=== PATIENT | female | born 1940 | race Caucasian/White ===

== ENCOUNTER 2018-06-21 05:48 | Inpatient (IN) | payer MEDICARE, OTHER, SELFPAY ==
[2018-06-06 10:41] VITALS: BMI 31.6
[2018-06-21] VITALS (19 sets, daily range): BP systolic 80–165; BP diastolic 47–90; PULSE 58–100; RESP 12–19; TEMP 36.1–36.7; O2SAT 94–98; BMI 31.6; BMI 32.3
--- NOTE | 2018-06-21 | DI.RAD.S_ITS ---
PROCEDURE: XR SHOULDER LT MIN 2V INDICATIONS: Status post total shoulder arthroplasty TECHNIQUE: 2 views of the shoulder were acquired. COMPARISON: [facility], CT, CT SHOULDER LEFT WITHOUT CONTRAST, 02/22/2018, 12:14. FINDINGS: Bones: Expected postoperative changes related to a total left shoulder arthroplasty are present. Metallic prosthetic component appears to be properly seated within the proximal humerus. No acute fractures are evident. There is no dislocation. Moderate to severe degenerative changes of the acromioclavicular joint are present. Prominent degenerative changes of the spine are not adequately characterized. Soft tissues: No suspicious soft tissue calcifications. Expected postoperative changes within the overlying soft tissues of the left shoulder are present. A surgical drainage catheter appears to be present. No unexpected radiopaque foreign bodies are evident. Aortic atherosclerosis is present. IMPRESSION: Expected post surgical changes related to left shoulder arthroplasty. Dictated by: Javy Wagner M.D. on 06/21/2018 at 10:30 Approved by: Javy Wagner M.D. on 06/21/2018 at 10:32
[2018-06-21] MEDS: LACTATED RINGERS 1,000 ML 42 ML IV ×2 (07:00→11:16)
[2018-06-21] MEDS: VANCOMYCIN 1,000 MG/200 ML FROZ.PIGGY 200 MG IV ×2 (07:10→18:48)
--- NOTE | 2018-06-21 08:04 | SUR.PREOP ---
Block start time [0745] . Monitoring initiated and maintained throughout procedure. Oxygen and medications given per anesthesiologist instructions. Patient remained stable throughout procedure, no adverse reactions noted. Block end time [0800].
--- NOTE | 2018-06-21 08:05 | PM.PREOP ---
Pre-operative Note Interval Note History & Physical reviewed/Exam performed by Physician: Yes Changes to H&P: No
[2018-06-21] MEDS: GENTAMICIN 200 MG in SODIUM CHLORIDE 0.9% 100 ML 105 ML IV (08:15)
--- NOTE | 2018-06-21 08:46 | SUR.OPER ---
Beach chair with Attila/Sergo shoulder positioner. Lower body on padded OR bed. Head in foam padded head cradle, secured with straps. Non-operative arm secured <90 degrees abduction. Pillow under knees. Safety belt at thigh. Cloth tape over blanket over lower legs.
--- NOTE | 2018-06-21 08:57 | PM.PROC.1 ---
Procedures Date/Time Date of procedure: 06/21/18 Time of procedure: 07:45 General Procedure description: Ultrasound guided interscalene brachial plexus nerve block for post op pain control after left total shoulder arthroplasty by Dr. Lenz. Risk and benefits of procedure discussed with patient. ASA monitoring applied to patient. O2 given via nasal cannula. 2 mg Versed and 100 mcg fentanyl given for procedural sedation. Skin site was prepped with chlorhexidine and allowed to fully dry. Sterile gloves, mask, hat and probe cover were used to maintain sterility. 2% lidocaine and 30ga needle was used to make a small skin wheal at needle insertion site. Under ultrasound guidance, a 21ga 50mm Pajunk needle was directed into the interscalene groove (middle/anterior scalenes) near the brachial plexus. Patient reported no parasthesias. After negative aspiration, 20 mL 0.5% ropivicaine and 10mg dexamethasone were injected around brachial plexus. Patient tolerated procedure well.
--- NOTE | 2018-06-21 09:00 | P.PCN_ITS ---
Procedures Date/Time Date of procedure: 06/21/18 Time of procedure: 07:45 General Procedure description: Ultrasound guided interscalene brachial plexus nerve block for post op pain control after left total shoulder arthroplasty by Dr. Lenz. Risk and benefits of procedure discussed with patient. ASA monitoring applied to patient. O2 given via nasal cannula. 2 mg Versed and 100 mcg fentanyl given for procedural sedation. Skin site was prepped with chlorhexidine and allowed to fully dry. Sterile gloves, mask, hat and probe cover were used to maintain sterility. 2% lidocaine and 30ga needle was used to make a small skin wheal at needle insertion site. Under ultrasound guidance, a 21ga 50mm Pajunk needle was directed into the interscalene groove (middle/ anterior scalenes) near the brachial plexus. Patient reported no parasthesias. After negative aspiration, 20 mL 0.5% ropivicaine and 10mg dexamethasone were injected around brachial plexus. Patient tolerated procedure well.
[2018-06-21] MEDS: LIDOCAINE 1% W/EPI INJ 4 ML INJ (09:04)
--- NOTE | 2018-06-21 10:46 | P.OP_ITS ---
Operative Date/Time/Diagnoses Date of procedure: 06/21/18 Time of procedure: 08:00 Pre-op diagnosis: Left shoulder arthritis Post-op diagnosis: same Procedure & Clinicians Procedure: Left total shoulder arthroplasty Same procedure as scheduled: Yes Indications: Left end-stage shoulder arthritis Surgeon: Ángel Lenz Marketing Technology Coordinator: Karen Vazquez Anesthesia Type: General and Peripheral nerve block Operative Notes Findings: End-stage arthritis to the glenohumeral joint with significant osteophyte formation. No sign of any rotator cuff tears. Closure Type: primary Specimen(s): none sent Implants & Drains: Arthrex total shoulder arthroplasty Medium glenoid 8mm stem 44/17 head Applied: drain(s) and implant(s) Estimated Blood Loss (mL): 50 Blood products transfused: none Procedure in detail: On date of service, Patient was met in the holding area. The operative site was signed and witnessed by the OR staff. The surgeries once again discussed with the patient and any remaining questions they had were answered fully. Patient was taken back to the operating theater and placed on the operating table in a supine position. Great care was taken to ensure that all bony prominences were properly padded. Patient was then placed into the beach chair position. The head and neck were properly positioned and secured. A timeout was performed verifying patient's name, procedure, and the operative site. The upper extremity was then prepped and draped in the normal sterile fashion. Previously, the bony anatomy and incision were marked out as well as injected with Marcaine with epinephrine. A deltopectoral approach was performed. 10 blade was used to incise the skin and fascial tissue. A deep knife was used to continue sharp dissection until the cephalic vein was visualized. The cephalic vein was dissected free allowing us to expose the deltopectoral interval. This interval was then developed. A Jonas elevator was used to free up the deltoid of any scarring both superficially as well as deeply. The vein and the deltoid were taken laterally while the pectoralis was taken medially. This gave us good visualization of the strap muscles. The clavipectoral fascia was removed and the strap muscles were then retracted medially with the pectoralis. This gave us stabilization of the subscapularis. The circumflex vessels were ligated and the subscapularis was sharply excised off the lesser tuberosity and then tagged. Once the subscapularis was released we're able to dislocate the shoulder. Patient had end-stage arthritic changes to the humeral head as well as the glenoid with large osteophytes anterior inferiorly as well as posteriorly. A Ronger was then used to remove the osteophytes. Next, cutting guide was placed and a saw was used to remove the humeral head. Once the head was removed it was templated. A starting awl was then used to find the canal and then the humerus was reamed and broached. Trial stem was placed and a variety of heads were trialed. A protector placed for the osteotomy was then placed and and we turned our attention back to the subscapularis as well as the glenoid. The subscapularis was freed up and a 360? fashion. The degenerative anterior and inferior capsular tissue was removed. This was followed by removing the degenerative labral tissue from around the glenoid as well as the biceps insertion. This gave us good visualization of the glenoid. Glenoid trials were used until we found the appropriate fit and curvature. Next the center hole was drilled followed by reaming of the glenoid. The wound was copiously irrigated after reaming. Next the pegs were drilled and a trial glenoid was impacted into place. Once we were satisfied with the preparation of the glenoid , the final component was cemented into place. This was followed by impaction. We Return to our attention back to the humerus. The protector plate was removed and heads were trialed once again and so we found the appropriate fit. The trials were removed and bone tunnels were made into the humeral neck. #2 FiberWire were passed through the bone tunnels for eventual subscapularis repair. The final stem and head were impacted into place and the shoulder was reduced. It was taken through range of motion and was felt to be stable in both posterior translation as well as external and internal rotation with abduction. The subscapularis was repaired back to the lesser tuberosity through the bone tunnels. This was then reinforced with soft tissue repair. Part of the rotator interval was then closed. A drain was placed and the rest of the wound was closed in a layered fashion. The shoulder was then cleaned dried and dressed and the patient was taken to the PACU in stable condition. Patient will follow our postoperative protocol for total shoulder arthroplasty. Complications: none Condition: stable Disposition: Acute Care Plan for aftercare: Patient will follow our postoperative protocol for total shoulder arthroplasty
--- NOTE | 2018-06-21 12:16 | SUR.PHASEI ---
Pt's bp low on admit to pacu, IV fluids infusing high rate. Pt asymptomatic. BP dropped to 80's systolic while sitting straight up for xray, and pt still asymptomatic. Dr levine made aware, 500mls bolus in progress after first iv infused per dr levine's instruction.
--- NOTE | 2018-06-21 12:45 | SUR.PHASEI ---
Late entry: Bolus completed .Pt's condition reported to Dr. Sarmiento, no new orders recieved, pt ok per MD to go upstairs. Pt transpoted up to room 222 and left in stable condition.
[2018-06-21] MEDS: LACTATED RINGERS 1,000 ML 125 ML IV ×2 (13:51→21:02)
--- NOTE | 2018-06-21 15:30 | PT.IIE ---
Current Diagnoses Obstructive sleep apnea (adult) (pediatric) (06/21/18) Primary osteoarthritis, left shoulder (06/21/18) Surgery Performed Operation Date: 06/21/18 07:45 Actual Procedures p Total Shoulder Arthroplasty(Left) - Ángel Lenz MD Surgical History (Last Updated 06/06/18 @ 11:28 by Corinne Dailey, RN) History of total hip arthroplasty (Acute) History of total knee arthroplasty (Acute) Medical History (Last Updated 06/06/18 @ 11:27 by Corinne Dailey, RN) Arthralgia (Acute) Arthritis (Acute) Arthritis of left shoulder region (Acute) Back pain (Acute) Borderline diabetic (Acute) Constipation (Acute) Decreased sensation of foot (Acute) Dysthymia (Acute) Fatigue (Acute) History of breast cancer (Acute) Hyperlipidemia (Acute) Hypertension (Acute) Lumbar spinal stenosis (Acute) Mass of upper lobe of right lung (Acute ~02/26/18) Huerta's neuroma of right foot (Acute) Murmur (Acute) Myalgia (Acute) MARIAM (obstructive sleep apnea) (Acute) Osteopenia of forearm (Acute) Right foot pain (Acute) Rosacea (Acute) Physical Therapy Inpatient Evaluation/Re-Eval M1 PT/OT-IP Prior Functional Status Start: 06/21/18 17:03 Freq: NEEDED Status: Active Protocol: Document 06/21/18 15:30 AB (Rec: 06/21/18 17:18 AB [id number]) Medical Review Prior Functional Status Medical History Reviewed Yes Communication Able to make needs known Mobility and Gait pt stated thta she is independent with all mobilities and ambulation without AD indoors; uses SPC outdoors but also uses 4WW outdoors if she has to walk long distances Social History Household Members none Living Arrangements Apartment/Condo Number of Floors (Floors) One Floor Number of Stairs To Enter/Railing? no steps to enter Home Environment High Toilet Walk in Shower Home Equipment Four Wheel Walker Straight Cane Grab Bars Near Toilet Grab Bars In Shower Additional Social History Comment has a recliner and stated that the doctor told her to sleep on the recliner pt's daughter will stay with pt for the next few days and then pt's son and another son will take over to assist pt. M2 PT-IP Current Condition Start: 06/21/18 17:03 Freq: NEEDED Status: Active Protocol: Document 06/21/18 15:30 AB (Rec: 06/21/18 17:18 AB [id number]) Physical Therapy Current Condition Current Condition Evaluation Date 06/21/18 Treatment Diagnosis s/p L TSA; difficulty in walking Onset Date 06/21/18 Precautions Shoulder Precautions Sling PROM Internal Rotation to Body No External Rotation No Abduction Forward Flexion to 90 degrees Pendulums Weight Bearing Status Weight Bearing Status Non-Weight Bearing Allowed Weight Bearing Amount (enter % LUE NWB or #) (%) M3 PT-IP Subjective Start: 06/21/18 17:03 Freq: NEEDED Status: Active Protocol: Document 06/21/18 15:30 AB (Rec: 06/21/18 17:18 AB [id number]) Subjective Physical Therapy Visit Type Type Initial Evaluation Visit Start Time 15:30 Visit Stop Time 16:18 Total Visit Minutes 48 Number of METALLURGICAL TESTER Visits 0 Physical Therapy Visit Comments Patient Comments pt agreeable to get up; daughter present during PT session Therapy Pain Assessment Pain Present Pain Present Denied Pain M4 PT-IP Mobility and Gait Start: 06/21/18 17:03 Freq: NEEDED Status: Active Protocol: Document 06/21/18 15:30 AB (Rec: 06/21/18 17:18 AB [id number]) PT-Bed Mobility Assessment Supine to Sit Supine to Sit Standby Assistance Sit to Supine Sit to Supine Standby Assistance Scooting Scooting to Edge of Bed Standby Assistance PT-Transfer Assessment Sit to and From Stand Sit to and from Stand Minimal Assistance 1 Person Assistance Use of Upper Extremities Equipment Transfer Assistive Device Gait Belt Straight Cane Orthotic/Prosthetic Devices or Brace: Yes Comments Mobility Comments BP supine: 136/65. pt has LUE sling on. pt completed bed mobility supine to sit SBA. pt sat on EOB SBA. educated pt and pt's daughter on how to manage and position sling. initiated ROM on L elbow and hand but pt can only squeeze hand and unable to control elbow and other hand movement at this time. pt stated that she is still numb on LUE. pt completed sit to stand from EOB min A and cues. initiated ambulation but after taking ~ 2-3 steps stated that she does not think she can ambulate and c/o lightheadedness. instructed pt to take side steps towards HOB and pt completed min A. pt completed sit to supine SBA . positioned pt on the bed. BP checked 120/81. ice pack provided. call light and table placed within reach. left pt with daughter in room. set up caregiver trainin -930 AM tomorrow Gait Assessment Gait Gait Assistance Required: Minimum Assistance Distance (Feet) 3 Able to Maintain Weight Bearing Status Yes During Gait Assistive Devices Assistive Device Gait Belt Straight Cane Orthotic/Prosthetic Devices or Brace: Yes Gait Deviations General Gait Pattern Antalgic Decreased Stride Length Decreased Feet Clearance Factors Limiting Gait Function Factors Limiting Gait Function Decreased Activity Tolerance Decreased Sensation Decreased Strength Limited Range of Motion Poor Balance Poor Safety Awareness Comments Gait Comments able to take side steps towards HOB min A and cues. PT-Balance Assessment Sitting Balance and Reactions Static Sitting Balance Ability Good Dynamic Sitting Balance Ability Good Standing Balance and Reactions Static Standing Balance Ability Fair Dynamic Standing Balance Ability Fair Device Used SPC M5 PT-IP Objective Assessments Start: 06/21/18 17:03 Freq: NEEDED Status: Active Protocol: Document 06/21/18 15:30 AB (Rec: 06/21/18 17:18 AB [id number]) Orientation Orientation/Cognition Level of Alertness Alert Orientation Name Age Birthday Month Date Year Day of Week Place Situation Safety Awareness Decreased Safety Awareness Gross Range of Motion Upper Extremity ROM Assessment Left Impaired Lower Extremity ROM Assessment Within Functional Limits Strength Lower Extremity Strength Assessment Within Functional Limits Sensation Assessment Sensation Light Touch Impaired Proprioception (Position) Impaired Sensation Description Numbness Comments Sensation Comments pt stated that LUE is still numb from the nerve block; has decrease motor control on LUE M6 PT-IP Treatment Start: 06/21/18 17:03 Freq: NEEDED Status: Active Protocol: Document 06/21/18 15:30 AB (Rec: 06/21/18 17:18 AB [id number]) Physical Therapy Treatment Education Education Provided Precautions Weight Bearing Status Safety Brace Education Donning [place] Patient Caregiver Other Treatments Other Treatment Performed caregiver training initiated for sling management. M7 PT-IP Assessment and Plan Start: 06/21/18 17:03 Freq: NEEDED Status: Active Protocol: Document 06/21/18 15:30 AB (Rec: 06/21/18 17:18 AB [id number]) PT Summary Assessment and Plan Potential Rehabilitation Potential Fair Status of Condition at Evaluation Evolving Summary Impairments Pain ROM Strength Balance Coordination Sensation Tone Cognition Bed Mobility Transfers Gait Activity Tolerance Assessment Summary pt unable to tolerate much activity today with c/o lightheadedness during standing. pt just had surgery this morning and will likely progress during hospital stay. caregiver training set up with pt's daughter tomorrow at 9-930 am. if pt's daughter is able to assist pt safely, pt may go home when medically stable. will continue to assess. Goals Bed Mobility Goal Independent Transfer Goal Standby Assistance Cane Gait Goal Standby Assistance Cane Gait Distance 150 Days to Meet Goals 3 Frequency of Treatment Frequency Of Treatment Twice a Day Treatment Plan Physical Therapy Treatment Plan Bed Mobility Training Transfer Training Gait Training Therapeutic Exercise Balance Retraining Post Op Education Discharge Planning Hot or Cold Pack Neuromuscular Re-ed Coordination Retraining Manual Therapy Other Recommendations and Next Treatment caregiver training 9-930 am ; ambulation, sling management, pendulum if appropriate Recommendations To Nursing Amount of Assist Needed 1 Person Assist Discharge Recommendations PT Discharge Recommendations Home with Assistance
[2018-06-21] MEDS: ACETAMINOPHEN 325 MG TABLET 975 MG PO ×2 (15:44→21:02)
[2018-06-21] MEDS: MAG HYDROX/ALUM/SIMETH 30 ML UDC PO (18:48)
[2018-06-21] MEDS: OXYCODONE IR 5 MG TABLET PO ×3 (18:48→23:59)
[2018-06-21] MEDS: CYCLOBENZAPRINE 5 MG TABLET PO (21:03)
[2018-06-21] MEDS: DOCUSATE 100 MG CAPSULE PO (21:03)
[2018-06-21] MEDS: MAGNESIUM HYDROXIDE 30 ML UDC PO (21:05)
[2018-06-22] VITALS (7 sets, daily range): BP systolic 111–146; BP diastolic 55–71; PULSE 53–63; RESP 16–18; TEMP 36.7–37; O2SAT 96–99
[2018-06-22] MEDS: OXYCODONE IR 5 MG TABLET PO ×3 (02:59→09:51)
[2018-06-22 06:04] LABS: Hematocrit 31.1 % (36-46); Hemoglobin 10.5 g/dL (12.0-16.0); Mean Corpuscular HGB Conc 33.9 % (30-36); Mean Corpuscular Volume 88.3 fL (80-100); Platelet Count 165 X10^3/uL (150-400); Red Blood Cell Count 3.52 X10^6/uL (4.0-5.2); Red Cell Distribution Width 14.8 % (11.6-14.8); White Blood Cell Count 9.7 X10^3/uL (4.5-11.0)
[2018-06-22] MEDS: DOCUSATE 100 MG CAPSULE PO ×2 (08:34→20:36)
[2018-06-22] MEDS: ACETAMINOPHEN 325 MG TABLET 975 MG PO ×2 (08:35→18:47)
[2018-06-22] MEDS: IRBESARTAN 150 MG TABLET 300 MG PO (08:38)
[2018-06-22] MEDS: ANASTROZOLE 1 MG TABLET PO (08:38)
[2018-06-22] MEDS: VITAMIN B COMPLEX 1 CAPSULE 1 CAP PO (08:38)
[2018-06-22] MEDS: SERTRALINE 25 MG TABLET PO (08:38)
--- NOTE | 2018-06-22 09:37 | PT.IPTN ---
Current Diagnoses Obstructive sleep apnea (adult) (pediatric) (06/21/18) Primary osteoarthritis, left shoulder (06/21/18) Surgery Performed Operation Date: 06/21/18 07:45 Actual Procedures p Total Shoulder Arthroplasty(Left) - Ángel Lenz MD Physical Therapy Treatment Note M2 PT-IP Current Condition Start: 06/21/18 17:03 Freq: NEEDED Status: Active Protocol: Document 06/21/18 15:30 AB (Rec: 06/21/18 17:18 AB [id number]) Physical Therapy Current Condition Current Condition Evaluation Date 06/21/18 Treatment Diagnosis s/p L TSA; difficulty in walking Onset Date 06/21/18 Precautions Shoulder Precautions Sling PROM Internal Rotation to Body No External Rotation No Abduction Forward Flexion to 90 degrees Pendulums Weight Bearing Status Weight Bearing Status Non-Weight Bearing Allowed Weight Bearing Amount (enter % LUE NWB or #) (%) M3 PT-IP Subjective Start: 06/21/18 17:03 Freq: NEEDED Status: Active Protocol: Document 06/22/18 09:05 HELENA (Rec: 06/22/18 09:37 [id number]) Subjective Physical Therapy Visit Type Type Treatment Note Visit Start Time 09:05 Visit Stop Time 09:20 Total Visit Minutes 15 Physical Therapy Visit Comments Patient Comments pt agreeable to get up; daughter present during PT session M4 PT-IP Mobility and Gait Start: 06/21/18 17:03 Freq: NEEDED Status: Active Protocol: Document 06/22/18 09:05 HELENA (Rec: 06/22/18 09:37 LJ [id number]) PT-Bed Mobility Assessment Supine to Sit Supine to Sit Standby Assistance Sit to Supine Sit to Supine Standby Assistance Scooting Scooting to Edge of Bed Standby Assistance PT-Transfer Assessment Sit to and From Stand Sit to and from Stand Standby Assistance Use of Upper Extremities Equipment Transfer Assistive Device None Orthotic/Prosthetic Devices or Brace: Yes Comments Mobility Comments Pt with LUE sling on. States she has been up x2 already with assist from daughter. Educated and demonstrated pendulum at bed side. Pt got out of bed and while holding on to bedrails, attempted the exercise. Mod cues for relaxing the shoulder to let it hang. Attempted for several minutes then replaced sling. Pt returned to bed w/min assist Gait Assessment Gait Gait Assistance Required: Minimum Assistance Distance (Feet) 3 Able to Maintain Weight Bearing Status Yes During Gait Assistive Devices Orthotic/Prosthetic Devices or Brace: Yes Factors Limiting Gait Function Factors Limiting Gait Function Decreased Activity Tolerance Decreased Sensation Decreased Strength Limited Range of Motion Poor Balance Poor Safety Awareness Comments Gait Comments treatment focused on UE at this time PT-Balance Assessment Sitting Balance and Reactions Static Sitting Balance Ability Good Dynamic Sitting Balance Ability Good Standing Balance and Reactions Static Standing Balance Ability Fair Dynamic Standing Balance Ability Fair Device Used SPC M5 PT-IP Objective Assessments Start: 06/21/18 17:03 Freq: NEEDED Status: Active Protocol: Document 06/21/18 15:30 AB (Rec: 06/21/18 17:18 AB [id number]) Orientation Orientation/Cognition Level of Alertness Alert Orientation Name Age Birthday Month Date Year Day of Week Place Situation Safety Awareness Decreased Safety Awareness Gross Range of Motion Upper Extremity ROM Assessment Left Impaired Lower Extremity ROM Assessment Within Functional Limits Strength Lower Extremity Strength Assessment Within Functional Limits Sensation Assessment Sensation Light Touch Impaired Proprioception (Position) Impaired Sensation Description Numbness Comments Sensation Comments pt stated that LUE is still numb from the nerve block; has decrease motor control on LUE M6 PT-IP Treatment Start: 06/21/18 17:03 Freq: NEEDED Status: Active Protocol: Document 06/22/18 09:05 HELENA (Rec: 06/22/18 09:37 [id number]) Physical Therapy Treatment Education Education Provided Precautions Weight Bearing Status Safety Brace Education Donning [place] Patient Caregiver Other Treatments Other Treatment Performed caregiver training for sling management. M7 PT-IP Assessment and Plan Start: 06/21/18 17:03 Freq: NEEDED Status: Active Protocol: Document 06/22/18 09:05 HELENA (Rec: 06/22/18 09:37 [id number]) PT Summary Assessment and Plan Potential Rehabilitation Potential Fair Status of Condition at Evaluation Evolving Summary Impairments Pain ROM Strength Balance Coordination Sensation Tone Cognition Bed Mobility Transfers Gait Activity Tolerance Assessment Summary Pt demonstrates understanding of pendulum exercise and need to relax the shoulder w/no muscle activation. Daughter present during session observing and attending to pt needs for UE support and ice pack. Will ambulate this afternoon w/pt Goals Bed Mobility Goal Independent Transfer Goal Standby Assistance Cane Gait Goal Standby Assistance Cane Gait Distance 150 Days to Meet Goals 3 Frequency of Treatment Frequency Of Treatment Twice a Day Treatment Plan Physical Therapy Treatment Plan Bed Mobility Training Transfer Training Gait Training Therapeutic Exercise Balance Retraining Post Op Education Discharge Planning Hot or Cold Pack Neuromuscular Re-ed Coordination Retraining Manual Therapy Other Recommendations and Next Treatment caregiver training 9-930 am ; ambulation, sling management, pendulum if appropriate Recommendations To Nursing Amount of Assist Needed Standby Assistance Discharge Recommendations PT Discharge Recommendations Home with Assistance
--- NOTE | 2018-06-22 09:54 | PM.PNPO.1 ---
Subjective Date Patient Seen: 06/22/18 Time Patient Seen: 09:54 Interval history: Hospital day 2, postop day 1 following left total shoulder arthroplasty by Dr. Lenz. Patient has remained stable postoperatively. Using oxycodone for pain. She did work with physical therapy yesterday. She states she does not have outpatient PT scheduled. Patient is concerned about discharge to home because of limited caregiver. She has a family member that will stay with her for few days but then she will be by herself. She was asking about SNF or home health. Exam Vital Signs (past 8 hours): - 06/22/18 04:55 Temperature 98.2 F Pulse Rate 63 Respiratory Rate 16 Blood Pressure 118/68 Pulse Oximetry 97 Oxygen Delivery Method Room Air Oxygen Flow Rate 1 Narrative Exam Narrative: Alert, oriented no acute distress sitting in chair. Left arm. Arm in sling. Aquacel dressing to left shoulder is dry without drainage or inflammation. Motion Picture Projectionist Apprentice strong and equal. Pulses and sensation symmetrical. Objective Labs Result Diagrams: 06/22/18 05:21 Labs: Laboratory Results - last 24 hr 06/22/18 05:21 WBC 9.7 RBC 3.52 L Hgb 10.5 L Hct 31.1 L MCV 88.3 MCH 30.0 MCHC 33.9 RDW 14.8 Plt Count 165 Assessment & Plan Post-op Postoperative Procedures Operation Date: 06/21/18 07:45 Actual Procedures Side Surgeon p Total Shoulder Arthroplasty Left Ángel Lenz MD Will have patient work with PT and OT today to evaluate her function. senior media planner will talk with patient regarding discharge options and possible home health versus SNF. Anticipate discharge to home tomorrow if she is stable and cleared by PT/OT. Quality VTE Deep Vein Thrombosis/Pulmonary Embolism Present on Admission: No
--- NOTE | 2018-06-22 09:57 | P.PN_ITS ---
Subjective Date Patient Seen: 06/22/18 Time Patient Seen: 09:54 Interval history: Hospital day 2, postop day 1 following left total shoulder arthroplasty by Dr. Lenz. Patient has remained stable postoperatively. Using oxycodone for pain. She did work with physical therapy yesterday. She states she does not have outpatient PT scheduled. Patient is concerned about discharge to home because of limited caregiver. She has a family member that will stay with her for few days but then she will be by herself. She was asking about SNF or home health. Exam Vital Signs (past 8 hours): - 06/22/18 04:55 Temperature 98.2 F Pulse Rate 63 Respiratory Rate 16 Blood Pressure 118/68 Pulse Oximetry 97 Oxygen Delivery Method Room Air Oxygen Flow Rate 1 Narrative Exam Narrative: Alert, oriented no acute distress sitting in chair. Left arm. Arm in sling. Aquacel dressing to left shoulder is dry without drainage or inflammation. Steward/Stewardess Club Car strong and equal. Pulses and sensation symmetrical. Objective Labs Result Diagrams: 06/22/18 05:21 Labs: Laboratory Results - last 24 hr 06/22/18 05:21 WBC 9.7 RBC 3.52 L Hgb 10.5 L Hct 31.1 L MCV 88.3 MCH 30.0 MCHC 33.9 RDW 14.8 Plt Count 165 Assessment & Plan Post-op Postoperative Procedures Operation Date: 06/21/18 07:45 Actual Procedures Side Surgeon p Total Shoulder Arthroplasty Left Ángel Lenz MD Will have patient work with PT and OT today to evaluate her function. retail planner will talk with patient regarding discharge options and possible home health versus SNF. Anticipate discharge to home tomorrow if she is stable and cleared by PT/OT. Quality VTE Deep Vein Thrombosis/Pulmonary Embolism Present on Admission: No
[2018-06-22] MEDS: OXYCODONE IR 10 MG TABLET PO ×4 (13:14→22:18)
--- NOTE | 2018-06-22 15:45 | CM.DANOTE ---
Discharge Planning/Care Management CM Discharge Assessment Start: 06/22/18 14:30 Freq: Status: Active Protocol: Document 06/22/18 14:30 (Rec: 06/22/18 15:45 [id number]) Discharge Planning Assessment Assigned Supervisor Histology ISIAH Rondon Advance Directives? Yes Advance Directives on File No History Provided By Patient Family Member Medical Record Prior Living Arrangements Apartment/Condo Comment Resides in [facility] in [place]. Household Members none Type of transporation used prior to Drives own vehicle admit Independent with ADL's Yes Is patient alert and oriented? Yes Caregiver for Another No Community Services used prior to Physical Therapy admission: Patient/Family Preference Group Home Facility Home with Home Health Barriers to Discharge No Discharge Plan Group Home Facility Community Services Physical Therapy Occupational Therapy Referrals Initiated Group Home Home Health If patient plan is home with home health No : Has signed face to face form been completed? If patient plan is SNF: Has PASSR been No completed? Inpatient Status as of 06/21/18 Comment Patient admitted following a left total shoulder. PCP is Elissa Lui in [place] . Primary payer is Medicare. Met with patient and daughter: patient reported being independent at baseline and residing [facility]. Patient's preference is to discharge to a SNF due to underlying knee and back pain, in addition to sholder rehab. Patient's daughter does not feel patient needs a SNF as she and her siblings made arrangements to assist patient for a 1 1/2 weeks and can extend if needed . Patient doesnt want her children to have to change their schedule to accommodate her and is pretty certain she will need a short term SNF stay and then could go home with HH and support of friends and evangelical. Patient reviewed Medicare Choice List and decided she would like SNF [facility]- [facility]. Also should she be safe to discharge home with HH she would prefer [facility] as her used them in the past. Medicare Choice List Provided Yes SNF/HH Preference SNF [facility]. [facility] 1. [facility] Comment CM/Kali faxed referral to [facility]. Whiteboard Updated in Patient Room with Yes name and ext. # of Supervisor Histology Review Status In Process Please Provide Date Initial DC 06/22/18 Assessment Was Performed Next Review Type Continued Stay Review Pre-Anesthesia Assessment Start: 06/06/18 10:41 Freq: Status: Complete Protocol: Document 06/06/18 10:41 RUSTAM (Rec: 06/06/18 10:58 RUSTAM [id number]) Pre-Anesthesia Assessment Patient Also Known As Ventura (AKA) Patient Information Reviewed Via Chart Review Phone Assessment Assessment Completed With Patient Consent for Planned Operative Procedure( No s) Verified H&P Completed Within 30 Days No Primary Care Provider Elissa Lui Seen Specialist in Last 12 Months Yes Specialist Seen Oncologist Orthopedist Primary Language Telugu Pastry Cook Helper Required No Height 168.91 cm Weight 90.265 kg Body Mass Index (BMI) 31.6 Hearing Ability Normal Visual Impairment Partially Limited Visual Assist Glasses Dentition Type Partial- Lower Full- Upper Barriers to Learning Visual Other Aids No Hx Anesthesia Reactions Yes: Difficult intubation 10 years ago, mult surg since w/o problem Hx Family Anesthesia Reaction No Hx Malignant Hyperthermia No Hx Blood Transfusions No Anesthesia Review Requested No Film And Video Graphics Designer No alcohol intake current alcohol intake frequency holidays/special occasions only Smoking Status Former smoker Tobacco type cigarettes Has it been 2 weeks or less since No patient quit smoking how long ago did patient quit smoking 1999 Substance Use Type opiates painkillers Pain Present Pain Reported Comment Left shoulder Musculoskeletal Symptoms Abnormal Gait Back Pain Difficulty Walking Joint Pain Joint Stiffness Joint Swelling Limited Range of Motion Muscle Weakness Numbness Radiating Pain into Limb History of Falling (Recent or History of Yes ) Patient is completely paralyzed or No completely immobile Ambulatory Aid Crutches/cane/walker Prosthesis or Orthotic Device Cane Front Wheel Walker Gait/Transferring Weak Mental Status Oriented to own ability Comment Weakness on right Is patient on oxygen? No Does patient have BRENNAN/SOB No Hx Sleep Apnea Yes: Mild, couldn't tolerate test period R/T shoulder pain Comment Spot on lung unknown not thought to be CA; Re scan end of 07/17 Currently Taking a Beta Lindsey No: BP fluctuates ' drastically' Can You Climb a Flight of Stairs Without No SOB Hx Chest Pain No Hx SOB No Hx Syncope or Dizziness Yes: 2 years ago, cardiac work -up negative Anti-Coagulant Therapy No Has a Coagulating Operator No Cardiac Testing Yes: negative workup Hx Pacemaker/ICD No Pacemaker Rep Required? No Cardiac Clearance Received Not Applicable Diet Type At Home Regular dysphagia No Bladder Pattern Incontinent Nocturia Urinary Catheter Present No Hx Urinary Self Catheterization No Comment Wears a pad, lacks sensation of urge to void Patient No Lactating No Hx Drug Resistant Organism No Presence of External or Internal Medical No: Robin TKA, COLBY Devices Have you traveled outside the [facility] States in the last 30 days? Marital Status Lives With none Prior Living Arrangements Apartment/Condo Number of Floors (Floors) One Floor Support System Gavi/God Family Friend(s) Patient Discharge Plan Description Group Home Facility/Rehab Comment Hope to go to rehab, lacks good home care Feels Safe in Current Environment Yes Been Physically Hurt or Threatened By a No Person in Current Environment Do you have thoughts of harming yourself None or others? Are you currently considering suicide? No Do you have a plan to hurt yourself or No Plan others? Do You Have Any Spiritual Beliefs That No May Affect Your HC Choices? Do You Have Any Cultural Practices That No May Affect Your HC Choices? Spiritual Referral In-House Travel Pt Comment Mormonism Who Can We Speak to About Patient's Care Family & Friends Identifying Code for Release of Patient Declined Information Health Care Proxy/Next of Kin Eva Alex daughter or Kevin Vaca Son Emergency Contact Name Eva Alex daughter or Kevin Vaca Son Advance Directives? Yes: REGISTRATION WILL REQUEST Advance Directives on File No Requested Patient Bring Advanced Yes Directives DOS Power of Bakery Team Member Yes Power of Bakery Team Member Name Eva Alex PAC Instructions Assistance for 24 hours post- op Do not shave/clip surgical site Durable medical equipment Medications to take/avoid Nasal antibiotic No ETOH/petroleum product on skin DOS NPO Ortho class Post-op transportation Pre-op antibiotic Pre-surgical wash Sensory aids Sturdy shoes/comfortable clothes Do not bring valuables and remove jewelry Comment Check-in 06
--- NOTE | 2018-06-22 15:54 | PT.IPTN ---
Current Diagnoses Obstructive sleep apnea (adult) (pediatric) (06/21/18) Primary osteoarthritis, left shoulder (06/21/18) Surgery Performed Operation Date: 06/21/18 07:45 Actual Procedures p Total Shoulder Arthroplasty(Left) - Ángel Lenz MD Physical Therapy Treatment Note M2 PT-IP Current Condition Start: 06/21/18 17:03 Freq: NEEDED Status: Active Protocol: Document 06/21/18 15:30 AB (Rec: 06/21/18 17:18 AB [id number]) Physical Therapy Current Condition Current Condition Evaluation Date 06/21/18 Treatment Diagnosis s/p L TSA; difficulty in walking Onset Date 06/21/18 Precautions Shoulder Precautions Sling PROM Internal Rotation to Body No External Rotation No Abduction Forward Flexion to 90 degrees Pendulums Weight Bearing Status Weight Bearing Status Non-Weight Bearing Allowed Weight Bearing Amount (enter % LUE NWB or #) (%) M3 PT-IP Subjective Start: 06/21/18 17:03 Freq: NEEDED Status: Active Protocol: Document 06/22/18 14:40 GGD (Rec: 06/22/18 15:54 GGD [id number]) Subjective Physical Therapy Visit Type Type Treatment Note Visit Start Time 14:20 Visit Stop Time 14:45 Total Visit Minutes 25 Number of SOUND CUTTER Visits 2 Physical Therapy Visit Comments Patient Comments Pt willing to work with theray . Therapy Pain Assessment Pain When Pain Assessed At Rest Pain Present Pain Present Pain Reported Location Left Shoulder Intensity 2 Scale Used Numeric (1 - 10) M4 PT-IP Mobility and Gait Start: 06/21/18 17:03 Freq: NEEDED Status: Active Protocol: Document 06/22/18 14:40 GGD (Rec: 06/22/18 15:54 GGD [id number]) PT-Bed Mobility Assessment Supine to Sit Supine to Sit Standby Assistance Head of Bed Elevated Sit to Supine Sit to Supine Standby Assistance Scooting Scooting to Edge of Bed Standby Assistance PT-Transfer Assessment Sit to and From Stand Sit to and from Stand Standby Assistance Use of Upper Extremities Equipment Transfer Assistive Device Gait Belt Straight Cane Transfers Transfer Destination Bed Gait Assessment Gait Gait Assistance Required: Contact Guard Assist Distance (Feet) 140 Assistive Devices Assistive Device Gait Belt Straight Cane Orthotic/Prosthetic Devices or Brace: Yes Gait Deviations General Gait Pattern Decreased Stride Length Decreased Feet Clearance Factors Limiting Gait Function Factors Limiting Gait Function Decreased Activity Tolerance Decreased Sensation Decreased Strength Limited Range of Motion Poor Balance Poor Safety Awareness M5 PT-IP Objective Assessments Start: 06/21/18 17:03 Freq: NEEDED Status: Active Protocol: Document 06/21/18 15:30 AB (Rec: 06/21/18 17:18 AB [id number]) Orientation Orientation/Cognition Level of Alertness Alert Orientation Name Age Birthday Month Date Year Day of Week Place Situation Safety Awareness Decreased Safety Awareness Gross Range of Motion Upper Extremity ROM Assessment Left Impaired Lower Extremity ROM Assessment Within Functional Limits Strength Lower Extremity Strength Assessment Within Functional Limits Sensation Assessment Sensation Light Touch Impaired Proprioception (Position) Impaired Sensation Description Numbness Comments Sensation Comments pt stated that LUE is still numb from the nerve block; has decrease motor control on LUE M6 PT-IP Treatment Start: 06/21/18 17:03 Freq: NEEDED Status: Active Protocol: Document 06/22/18 14:40 GGD (Rec: 06/22/18 15:54 GGD [id number]) Physical Therapy Treatment Education Education Provided Precautions M7 PT-IP Assessment and Plan Start: 06/21/18 17:03 Freq: NEEDED Status: Active Protocol: Document 06/22/18 14:40 GGD (Rec: 06/22/18 15:54 GGD [id number]) PT Summary Assessment and Plan Summary Assessment Summary Pt improving with gait and bed mobility. She was safe with gait with SPC. She safe for home D/C when medically stable . Frequency of Treatment Frequency Of Treatment Twice a Day Treatment Plan Physical Therapy Treatment Plan Bed Mobility Training Transfer Training Gait Training Therapeutic Exercise Balance Retraining Post Op Education Discharge Planning Hot or Cold Pack Neuromuscular Re-ed Coordination Retraining Manual Therapy Recommendations To Nursing Amount of Assist Needed Standby Assistance Discharge Recommendations PT Discharge Recommendations Home with Assistance
--- NOTE | 2018-06-22 17:57 | OT.IP.EVAL ---
Current Diagnoses Obstructive sleep apnea (adult) (pediatric) (06/21/18) Primary osteoarthritis, left shoulder (06/21/18) Surgery Performed Operation Date: 06/21/18 07:45 Actual Procedures p Total Shoulder Arthroplasty(Left) - Ángel Lenz MD Past Medical History (Last Updated 06/06/18 @ 11:27 by Corinne Dailey, RN) Arthralgia (Acute) Arthritis (Acute) Arthritis of left shoulder region (Acute) Back pain (Acute) Borderline diabetic (Acute) Constipation (Acute) Decreased sensation of foot (Acute) Dysthymia (Acute) Fatigue (Acute) History of breast cancer (Acute) Hyperlipidemia (Acute) Hypertension (Acute) Lumbar spinal stenosis (Acute) Mass of upper lobe of right lung (Acute ~02/26/18) Huerta's neuroma of right foot (Acute) Murmur (Acute) Myalgia (Acute) MARIAM (obstructive sleep apnea) (Acute) Osteopenia of forearm (Acute) Right foot pain (Acute) Rosacea (Acute) Surgical History (Last Updated 06/06/18 @ 11:28 by Corinne Dailey, PRADEEP) History of total hip arthroplasty (Acute) History of total knee arthroplasty (Acute) Occupational Therapy Inpatient Evaluation/Re-Eval M1 PT/OT-IP Prior Functional Status Start: 06/21/18 17:03 Freq: NEEDED Status: Active Protocol: Document 06/21/18 15:30 AB (Rec: 06/21/18 17:18 AB [id number]) Medical Review Prior Functional Status Medical History Reviewed Yes Communication Able to make needs known Mobility and Gait pt stated that she is independent with all mobilities and ambulation without AD indoors; uses SPC outdoors but also uses 4WW outdoors if she has to walk long distances Social History Household Members none Living Arrangements Apartment/Condo Number of Floors (Floors) One Floor Number of Stairs To Enter/Railing? no steps to enter Home Environment High Toilet Walk in Shower Home Equipment Four Wheel Walker Straight Cane Grab Bars Near Toilet Grab Bars In Shower Additional Social History Comment has a recliner and stated that the doctor told her to sleep on the recliner pt's daughter will stay with pt for the next few days and then pt's son and another son will take over to assist pt. M1 PT/OT-IP Prior Functional Status Start: 06/22/18 17:21 Freq: NEEDED Status: Active Protocol: Document 06/22/18 17:22 [facility]3] (Rec: 06/22/18 17:56 [facility]3] [id number]) Medical Review Prior Functional Status Medical History Reviewed Yes Communication Able to make needs known Mobility and Gait pt stated that she is independent with all mobilities and ambulation without AD indoors; uses SPC outdoors but also uses 4WW outdoors if she has to walk long distances Social History Household Members none Living Arrangements Apartment/Condo Number of Floors (Floors) One Floor Number of Stairs To Enter/Railing? no steps to enter Home Environment High Toilet Walk in Shower Home Equipment Four Wheel Walker Straight Cane Grab Bars Near Toilet Grab Bars In Shower Additional Social History Comment has a recliner and stated that the doctor told her to sleep on the recliner pt's daughter will stay with pt for the next few days and then pt's son and another son will take over to assist pt. M2 OT-IP Current Condition Start: 06/22/18 17:21 Freq: Status: Active Protocol: Document 06/22/18 17:22 [facility]3] (Rec: 06/22/18 17:56 [facility]3] [id number]) Occupational Therapy Current Condition Current Condition Evaluation Date 06/22/18 Treatment Diagnosis Left shoulder osteoarthritis Diagnosis Onset Date 06/21/18 Post Operative Precautions Shoulder Precautions Sling PROM Internal Rotation to Body No External Rotation No Abduction Forward Flexion to 90 degrees Pendulums M3 OT- IP Subjective and Pain Start: 06/22/18 17:21 Freq: Status: Active Protocol: Document 06/22/18 17:22 [facility]3] (Rec: 06/22/18 17:56 [facility]3] [id number]) OT- Subjective Occupational Therapy Visit Type Type Initial Evaluation Visit Start Time 16:30 Visit Stop Time 17:15 Total Visit Minutes 45 Occupational Therapy Visit Comments Patient Comments Pt agreeable to get up for OT eval. OT Pain Assessment Pain When Pain Assessed At Rest Pain Present Pain Present Denied Pain M4 OT- IP ADL's Start: 06/22/18 17:21 Freq: Status: Active Protocol: Document 06/22/18 17:22 [facility]3] (Rec: 06/22/18 17:56 [facility]3] [id number]) OT [id number] General Evaluation Self-Feeding Ability Minimal Assistance Areas Needing Assistance Opening Containers Comments OT Self-Feeding Comments Pt needing assist for set-up of tray and to help cut her food. Suggested a rocker knife would be helpful to be able to cut her food on her own. OT ADL-Dressing General Eval Upper Body Dressing Ability Total Assistance Lower Body Dressing Ability Maximum Assistance Comments OT Dressing Comments Pt needing assist to flora socks and dependent for UB dressing and especially for sling management. Pt's daughter not remembering how to flora sling and needing re- education for safety to flora/ doff sling. OT ADL-Bathing Comments OT Bathing Comments Set-up family training with pt 's daughter for shower and dressing needs tomorrow at 9AM . Suggested would be helpful for pt to have a shower chair and pt states son to put install HHSP. M5 OT- IP IADL's Start: 06/22/18 17:21 Freq: Status: Active Protocol: Document 06/22/18 17:22 [facility]3] (Rec: 06/22/18 17:56 [facility]3] [id number]) OT-Instrumental Activities of Daily Living Meal Preparation Meal Preparation Caregiver Provides Assist Panel Coverer Panel Coverer Caregiver Provides Assist Panel Coverer Comments Pt has a cleaning person that assists every 2 weeks. M6 OT- IP Functional Cognition Start: 06/22/18 17:21 Freq: Status: Active Protocol: Document 06/22/18 17:22 [facility]3] (Rec: 06/22/18 17:56 [facility]3] [id number]) Cognitive Factors Limiting Selfcare Function Cognitive Ability Level of Alertness Alert Patient Orientation Name Place Situation Attention Span Ability Capable of Focused Attention Capable of Sustained Attention Ability to Follow Commands Able to Follow One Step Commands Memory Description Short Term Impaired Safety Awareness Decreased Ability to Apply Precautions Underestimates Need for Assistance Problem Solving Ability Unable to Identify Errors Needs Assist to Identify Solutions Cognitive Comments Cognitive Assessment Comments Pt not able to recall that PT showed her how to don/doff sling. pt not able to follow pendulum exercises, as not able to relax her left shoulder from activating. OT- Vision and Hearing OT- Hearing Assessment OT- Hearing Assessment WFL M7 OT- IP Mobility and Balance Start: 06/22/18 17:21 Freq: Status: Active Protocol: Document 06/22/18 17:22 [facility]3] (Rec: 06/22/18 17:56 [facility]3] [id number]) OT-Transfer Assessment Sit to and From Stand Sit to and from Stand Contact Guard Assistance Transfers Transfer Ability Contact Guard Assistance Technique Transfer Destination Chair Transfer Technique Stand Step Pivot Devices Transfer Assistive Devices Gait Belt Straight Cane Comments Mobility Comments Pt needing cane for balance while up of her feet. After standing for a few minutes, BP decreased to 78/43, after sitting 81/52 and after leaning back in recliner 101/ 62, nursing notified of BP drop. OT- Balance Assessment Sitting Balance and Reactions Static Sitting Balance Ability Normal Dynamic Sitting Balance Ability Normal Standing Balance and Reactions Static Standing Balance Ability Fair Dynamic Standing Balance Ability Poor M8 OT- IP Objective Assessments Start: 06/22/18 17:21 Freq: Status: Active Protocol: Document 06/22/18 17:22 [facility]3] (Rec: 06/22/18 17:56 [facility]3] [id number]) OT Gross Range of Motion Upper Extremity Range of Motion ROM Impairments WFL for LUE from elbow to distal. OT Strength Comments Strength Comments NT for LUE, WFL for RUE At this time since pt not able to follow pendulums and would be best to just dangle her arm at this time. M9 OT- IP Assessment and Plan Start: 06/22/18 17:21 Freq: Status: Active Protocol: Document 06/22/18 17:22 [facility]3] (Rec: 06/22/18 17:56 [facility]3] [id number]) OT Summary Assessment and Plan Potential Rehabilitation Potential Good Analytic Complexity at Evaluation Low Summary OT Impairments Balance Coordination Functional Cognition Functional Mobility Self-Feeding Grooming Dressing Toileting Bathing Toilet Transfers Shower Transfers Progress Towards Goals Slow Progress due to Medical Issues Slow Progress due to Activity Tolerance Slow Progress due to Cognition Assessment Summary Pt low complexity and main barrier is decreased balance as LUE now in a sling, and needing extensive assist for all ADL needs at this time. Pt 's caregiver has initiated training however will continue to need training as not been able to recall how to properly flora/doff sling from PT session to OT session the following day. Pt, therefore pending appropriate training and follow through from pt's family for LUE needs from LTSA , pt may benefit from skilled rehab versus home with family to assist. Goals Self-Feeding Goal Standby Assistance Grooming Goal Minimal Assistance Dressing Goal Moderate Assistance Toileting Goal Minimal Assistance Bathing Goal Moderate Assistance Toilet Transfer Goal Standby Assistance Shower Transfer Goal Contact Guard Assistance Patient/Caregiver Education Goal Demonstrate Post-Op Precautions Caregiver Independent Assisting Patient Days to Meet Goals 3 Frequency of Treatment Frequency Of Treatment Once a Day Treatment Plan OT Treatment Plan ADL Training Functional Cognition Training Functional Mobility Patient/Family Education Discharge Planning Other Treatment Recommendations and Next shower and dressing training Treatment Focus for caregivers Discharge Recommendations OT Discharge Recommendations Home with 24/7 Assist-home health SNF Rehab Other Discharge Recommendations Pending completion of family training pt may benefit from skilled rehab versus home with 24/7 assist. Home Equipment Needs shower chair, HHSP, rocker knife
[2018-06-22] MEDS: BISACODYL 10 MG SUPP PR (20:36)
[2018-06-22] MEDS: MAGNESIUM HYDROXIDE 30 ML UDC PO (20:36)
[2018-06-22] MEDS: CYCLOBENZAPRINE 5 MG TABLET PO (20:36)
[2018-06-22] MEDS: ZOLPIDEM 5 MG TABLET PO ×2 (22:19)
[2018-06-23] MEDS: OXYCODONE IR 10 MG TABLET PO ×4 (01:40→10:58)
[2018-06-23] MEDS: ACETAMINOPHEN 325 MG TABLET 975 MG PO (01:51)
[2018-06-23 05:10] VITALS: BP 130/72; PULSE 61; RESP 16; TEMP 36.8; O2SAT 96
[2018-06-23 08:27] VITALS: BP 132/73; PULSE 58; RESP 16; TEMP 36.8; O2SAT 98
--- NOTE | 2018-06-23 09:30 | PT.IPTN ---
Current Diagnoses Obstructive sleep apnea (adult) (pediatric) (06/21/18) Primary osteoarthritis, left shoulder (06/21/18) Surgery Performed Operation Date: 06/21/18 07:45 Actual Procedures p Total Shoulder Arthroplasty(Left) - Ángel Lenz MD Physical Therapy Treatment Note M2 PT-IP Current Condition Start: 06/21/18 17:03 Freq: NEEDED Status: Discharge Protocol: Document 06/21/18 15:30 AB (Rec: 06/21/18 17:18 AB [id number]) Physical Therapy Current Condition Current Condition Evaluation Date 06/21/18 Treatment Diagnosis s/p L TSA; difficulty in walking Onset Date 06/21/18 Precautions Shoulder Precautions Sling PROM Internal Rotation to Body No External Rotation No Abduction Forward Flexion to 90 degrees Pendulums Weight Bearing Status Weight Bearing Status Non-Weight Bearing Allowed Weight Bearing Amount (enter % LUE NWB or #) (%) M3 PT-IP Subjective Start: 06/21/18 17:03 Freq: NEEDED Status: Discharge Protocol: Document 06/23/18 09:30 GGD (Rec: 06/23/18 12:51 GGD [id number]) Subjective Physical Therapy Visit Type Type Treatment Note Visit Start Time 09:00 Visit Stop Time 09:25 Total Visit Minutes 25 Number of PCB DESIGNER Visits 3 Physical Therapy Visit Comments Patient Comments Pt hopes to go home today. Therapy Pain Assessment Pain When Pain Assessed At Rest Location Left Shoulder Intensity 1 Scale Used Numeric (1 - 10) M4 PT-IP Mobility and Gait Start: 06/21/18 17:03 Freq: NEEDED Status: Discharge Protocol: Document 06/23/18 09:30 GGD (Rec: 06/23/18 12:51 GGD [id number]) PT-Transfer Assessment Sit to and From Stand Sit to and from Stand Standby Assistance Use of Upper Extremities Equipment Transfer Assistive Device Gait Belt Straight Cane Transfers Transfer Destination Chair Transfer Ability Level of Assist Contact Guard Assistance Gait Assessment Gait Gait Assistance Required: Contact Guard Assist Distance (Feet) 140 Able to Maintain Weight Bearing Status Yes During Gait Assistive Devices Assistive Device Gait Belt Straight Cane Orthotic/Prosthetic Devices or Brace: Yes Gait Deviations General Gait Pattern Decreased Stride Length Decreased Feet Clearance Factors Limiting Gait Function Factors Limiting Gait Function Decreased Activity Tolerance Decreased Sensation Decreased Strength Limited Range of Motion Poor Balance Poor Safety Awareness Comments Gait Comments Pt had mild unsteadiness with gait, but no LOB. M5 PT-IP Objective Assessments Start: 06/21/18 17:03 Freq: NEEDED Status: Discharge Protocol: Document 06/21/18 15:30 AB (Rec: 06/21/18 17:18 AB [id number]) Orientation Orientation/Cognition Level of Alertness Alert Orientation Name Age Birthday Month Date Year Day of Week Place Situation Safety Awareness Decreased Safety Awareness Gross Range of Motion Upper Extremity ROM Assessment Left Impaired Lower Extremity ROM Assessment Within Functional Limits Strength Lower Extremity Strength Assessment Within Functional Limits Sensation Assessment Sensation Light Touch Impaired Proprioception (Position) Impaired Sensation Description Numbness Comments Sensation Comments pt stated that LUE is still numb from the nerve block; has decrease motor control on LUE M6 PT-IP Treatment Start: 06/21/18 17:03 Freq: NEEDED Status: Discharge Protocol: Document 06/23/18 09:30 GGD (Rec: 06/23/18 12:51 GGD [id number]) Physical Therapy Treatment Exercises Exercises Shoulder Pendulums Education Education Provided Precautions Other Treatments Other Treatment Performed Pt needed mod cues for pendulums M7 PT-IP Assessment and Plan Start: 06/21/18 17:03 Freq: NEEDED Status: Discharge Protocol: Document 06/23/18 09:30 GGD (Rec: 06/23/18 12:51 GGD [id number]) PT Summary Assessment and Plan Summary Assessment Summary Pt improving with mobility. She was safe with gait with SPC. She did better with pendulums after cues and placement of sling. Pt safe for home D/C home when medically safe. Frequency of Treatment Frequency Of Treatment Twice a Day Treatment Plan Physical Therapy Treatment Plan Bed Mobility Training Transfer Training Gait Training Therapeutic Exercise Balance Retraining Post Op Education Discharge Planning Hot or Cold Pack Neuromuscular Re-ed Coordination Retraining Manual Therapy Recommendations To Nursing Amount of Assist Needed Standby Assistance Discharge Recommendations PT Discharge Recommendations Home with Assistance
--- NOTE | 2018-06-23 10:18 | OT.IP.TRT ---
Current Diagnoses Obstructive sleep apnea (adult) (pediatric) (06/21/18) Primary osteoarthritis, left shoulder (06/21/18) Surgery Performed Operation Date: 06/21/18 07:45 Actual Procedures p Total Shoulder Arthroplasty(Left) - Ángel Lenz MD Occupational Therapy Treatment Note M2 OT-IP Current Condition Start: 06/22/18 17:21 Freq: Status: Active Protocol: Document 06/22/18 17:22 [facility] (Rec: 06/22/18 17:56 [facility] [id number]) Occupational Therapy Current Condition Current Condition Evaluation Date 06/22/18 Treatment Diagnosis Left shoulder osteoarthritis Diagnosis Onset Date 06/21/18 Post Operative Precautions Shoulder Precautions Sling PROM Internal Rotation to Body No External Rotation No Abduction Forward Flexion to 90 degrees Pendulums M3 OT- IP Subjective and Pain Start: 06/22/18 17:21 Freq: Status: Active Protocol: Document 06/23/18 10:11 [facility] (Rec: 06/23/18 10:18 [facility] [id number]) OT- Subjective Occupational Therapy Visit Type Type Treatment Note Visit Start Time 08:52 Visit Stop Time 09:30 Total Visit Minutes 38 Occupational Therapy Visit Comments Patient Comments Pt feels ready to be able to go home today. OT Pain Assessment Pain When Pain Assessed At Rest Pain Present Pain Present Denied Pain M4 OT- IP ADL's Start: 06/22/18 17:21 Freq: Status: Active Protocol: Document 06/23/18 10:11 [facility] (Rec: 06/23/18 10:18 [facility] [id number]) OT ADL-Dressing General Eval Upper Body Dressing Ability Maximum Assistance Lower Body Dressing Ability Moderate Assistance Areas Needing Assistance Pull-Over Shirt Underpants/Brief Socks Shoes Comments OT Dressing Comments MAX A for sling management needs, pt's daughter better safety to flora/doff sling today. OT ADL-Bathing Bathing Type Bathing Type Shower General Evaluation Bathing Ability Maximal Assistance Areas Needing Assistance Wash/Dry Upper Body Wash/Dry Back Wash/Dry Perineal Area Wash/Dry Lower Extremities Devices Bathing Equipment Hand Held Shower Sprayer Shower Chair with Arms Grab Bars Comments OT Bathing Comments Pt's daughter able to show good safety and understanding for pt's needs and LUE management for showering today . M5 OT- IP IADL's Start: 06/22/18 17:21 Freq: Status: Active Protocol: Document 06/22/18 17:22 [facility] (Rec: 06/22/18 17:56 [facility] [id number]) OT-Instrumental Activities of Daily Living Meal Preparation Meal Preparation Caregiver Provides Assist Professional Sports Scout Professional Sports Scout Caregiver Provides Assist Professional Sports Scout Comments Pt has a cleaning person that assists every 2 weeks. M6 OT- IP Functional Cognition Start: 06/22/18 17:21 Freq: Status: Active Protocol: Document 06/23/18 10:11 [facility] (Rec: 06/23/18 10:18 [facility] [id number]) Cognitive Factors Limiting Selfcare Function Cognitive Ability Level of Alertness Alert Patient Orientation Name Place Situation Attention Span Ability Capable of Focused Attention Capable of Sustained Attention Ability to Follow Commands Able to Follow Multi-Step Commands Safety Awareness Underestimates Need for Assistance Problem Solving Ability Needs Assist to Identify Solutions Cognitive Comments Cognitive Assessment Comments pt needing vc to sit down for LB dressing needs, vc to relax her LUE as tends to try to move LUE. M7 OT- IP Mobility and Balance Start: 06/22/18 17:21 Freq: Status: Active Protocol: Document 06/23/18 10:11 [facility] (Rec: 06/23/18 10:18 [facility] [id number]) OT-Transfer Assessment Sit to and From Stand Sit to and from Stand Contact Guard Assistance Transfers Transfer Ability Standby Assistance Contact Guard Assistance 1 Person Assistance Technique Transfer Destination Bed Chair Transfer Technique Stand Step Pivot Devices Transfer Assistive Devices Gait Belt Straight Cane Comments Mobility Comments Pt needing CGA for uneven terrain otherwise able to move with SBA with SPC. OT- Gait Assessment Comments Gait Ability Comments BP today did not drop or was pt symptomatic. OT- Balance Assessment Sitting Balance and Reactions Static Sitting Balance Ability Normal Dynamic Sitting Balance Ability Good Standing Balance and Reactions Static Standing Balance Ability Fair M8 OT- IP Objective Assessments Start: 06/22/18 17:21 Freq: Status: Active Protocol: Document 06/22/18 17:22 [facility] (Rec: 06/22/18 17:56 [facility] [id number]) OT Gross Range of Motion Upper Extremity Range of Motion ROM Impairments WFL for LUE from elbow to distal. OT Strength Comments Strength Comments NT for LUE, WFL for RUE M9 OT- IP Assessment and Plan Start: 06/22/18 17:21 Freq: Status: Active Protocol: Document 06/23/18 10:11 [facility] (Rec: 06/23/18 10:18 [facility] [id number]) OT Summary Assessment and Plan Potential Rehabilitation Potential Good Analytic Complexity at Evaluation Low Summary OT Impairments Balance Functional Cognition Dressing Bathing Shower Transfers Progress Towards Goals Progressing Toward Goals Assessment Summary Pt's daughter and pt better understanding for LUE safety , management, and positioning today. Pt's daughter aware that pt will need assist for ADL needs and states even after she leaves someone will assist her. Pt looking to go home with home health. Goals Days to Meet Goals 1 Frequency of Treatment Frequency Of Treatment Once a Day Treatment Plan OT Treatment Plan Patient/Family Education Discharge Planning Discharge Recommendations OT Discharge Recommendations Home with Assistance Home Health
--- NOTE | 2018-06-23 10:20 | OT.IP.TRT ---
Current Diagnoses Obstructive sleep apnea (adult) (pediatric) (06/21/18) Primary osteoarthritis, left shoulder (06/21/18) Surgery Performed Operation Date: 06/21/18 07:45 Actual Procedures p Total Shoulder Arthroplasty(Left) - Ángel Lenz MD Occupational Therapy Treatment Note M2 OT-IP Current Condition Start: 06/22/18 17:21 Freq: Status: Active Protocol: Document 06/22/18 17:22 [facility] (Rec: 06/22/18 17:56 [facility] [id number]) Occupational Therapy Current Condition Current Condition Evaluation Date 06/22/18 Treatment Diagnosis Left shoulder osteoarthritis Diagnosis Onset Date 06/21/18 Post Operative Precautions Shoulder Precautions Sling PROM Internal Rotation to Body No External Rotation No Abduction Forward Flexion to 90 degrees Pendulums M3 OT- IP Subjective and Pain Start: 06/22/18 17:21 Freq: Status: Active Protocol: Document 06/23/18 10:11 [facility] (Rec: 06/23/18 10:18 [facility] [id number]) OT- Subjective Occupational Therapy Visit Type Type Treatment Note Visit Start Time 0930 Visit Stop Time 1008 Total Visit Minutes 38 Occupational Therapy Visit Comments Patient Comments Pt feels ready to be able to go home today. OT Pain Assessment Pain When Pain Assessed At Rest Pain Present Pain Present Denied Pain M4 OT- IP ADL's Start: 06/22/18 17:21 Freq: Status: Active Protocol: Document 06/23/18 10:11 [facility] (Rec: 06/23/18 10:18 [facility] [id number]) OT ADL-Dressing General Eval Upper Body Dressing Ability Maximum Assistance Lower Body Dressing Ability Moderate Assistance Areas Needing Assistance Pull-Over Shirt Underpants/Brief Socks Shoes Comments OT Dressing Comments MAX A for sling management needs, pt's daughter better safety to flora/doff sling today. OT ADL-Bathing Bathing Type Bathing Type Shower General Evaluation Bathing Ability Maximal Assistance Areas Needing Assistance Wash/Dry Upper Body Wash/Dry Back Wash/Dry Perineal Area Wash/Dry Lower Extremities Devices Bathing Equipment Hand Held Shower Sprayer Shower Chair with Arms Grab Bars Comments OT Bathing Comments Pt's daughter able to show good safety and understanding for pt's needs and LUE management for showering today . M5 OT- IP IADL's Start: 06/22/18 17:21 Freq: Status: Active Protocol: Document 06/22/18 17:22 [facility] (Rec: 06/22/18 17:56 [facility] [id number]) OT-Instrumental Activities of Daily Living Meal Preparation Meal Preparation Caregiver Provides Assist Furnace Mechanic Helper Furnace Mechanic Helper Caregiver Provides Assist Furnace Mechanic Helper Comments Pt has a cleaning person that assists every 2 weeks. M6 OT- IP Functional Cognition Start: 06/22/18 17:21 Freq: Status: Active Protocol: Document 06/23/18 10:11 [facility] (Rec: 06/23/18 10:18 [facility] [id number]) Cognitive Factors Limiting Selfcare Function Cognitive Ability Level of Alertness Alert Patient Orientation Name Place Situation Attention Span Ability Capable of Focused Attention Capable of Sustained Attention Ability to Follow Commands Able to Follow Multi-Step Commands Safety Awareness Underestimates Need for Assistance Problem Solving Ability Needs Assist to Identify Solutions Cognitive Comments Cognitive Assessment Comments pt needing vc to sit down for LB dressing needs, vc to relax her LUE as tends to try to move LUE. M7 OT- IP Mobility and Balance Start: 06/22/18 17:21 Freq: Status: Active Protocol: Document 06/23/18 10:11 [facility] (Rec: 06/23/18 10:18 [facility] [id number]) OT-Transfer Assessment Sit to and From Stand Sit to and from Stand Contact Guard Assistance Transfers Transfer Ability Standby Assistance Contact Guard Assistance 1 Person Assistance Technique Transfer Destination Bed Chair Transfer Technique Stand Step Pivot Devices Transfer Assistive Devices Gait Belt Straight Cane Comments Mobility Comments Pt needing CGA for uneven terrain otherwise able to move with SBA with SPC. OT- Gait Assessment Comments Gait Ability Comments BP today did not drop or was pt symptomatic. OT- Balance Assessment Sitting Balance and Reactions Static Sitting Balance Ability Normal Dynamic Sitting Balance Ability Good Standing Balance and Reactions Static Standing Balance Ability Fair M8 OT- IP Objective Assessments Start: 06/22/18 17:21 Freq: Status: Active Protocol: Document 06/22/18 17:22 [facility] (Rec: 06/22/18 17:56 [facility] [id number]) OT Gross Range of Motion Upper Extremity Range of Motion ROM Impairments WFL for LUE from elbow to distal. OT Strength Comments Strength Comments NT for LUE, WFL for RUE M9 OT- IP Assessment and Plan Start: 06/22/18 17:21 Freq: Status: Active Protocol: Document 06/23/18 10:11 [facility] (Rec: 06/23/18 10:18 [facility] [id number]) OT Summary Assessment and Plan Potential Rehabilitation Potential Good Analytic Complexity at Evaluation Low Summary OT Impairments Balance Functional Cognition Dressing Bathing Shower Transfers Progress Towards Goals Progressing Toward Goals Assessment Summary Pt's daughter and pt better understanding for LUE safety , management, and positioning today. Pt's daughter aware that pt will need assist for ADL needs and states even after she leaves someone will assist her. Pt looking to go home with home health. Goals Days to Meet Goals 1 Frequency of Treatment Frequency Of Treatment Once a Day Treatment Plan OT Treatment Plan Patient/Family Education Discharge Planning Discharge Recommendations OT Discharge Recommendations Home with Assistance Home Health
--- NOTE | 2018-06-23 10:24 | PM.DS.1 ---
History of Present Illness Date Patient Seen: 06/23/18 Time Patient Seen: 10:24 Chief complaint: left shoulder [id number] Narrative: Patient's pain is mild. Denies fever chills. No nausea or vomiting. Denies numbness tingling left upper extremity. Daughter is available over next few days to assist her and then her son's will be available to take over at that point. She will need help bathing and dressing and will have home health occupational therapy scheduled. Discharge Providers Date of admission: 06/21/18 05:48 Consults: 06/06/18 11:36 Consult to Pastoral Services Routine Comment: Would enjoy a visit: [facility] Consult to Respiratory Therapy Evaluate & Treat Comment: Mild MARIAM, Not using a CPAP Physician Instructions: Evaluate and treat Consult to Relocation Commissioner Routine Comment: Inadequate care at home, prefers rehab 06/21/18 10:35 Consult to Discharge Planning Routine Comment: Consult to Physical Therapy Evaluate & Treat Comment: Physician Instructions: Evaluate and Treat Consult to Respiratory Therapy Evaluate & Treat Comment: Physician Instructions: Evaluate and treat 06/22/18 09:12 Consult to Occupational Therapy Evaluate & Treat Comment: Physician Instructions: Evaluate and treat Discharge provider: Dave Brantley PA-C Discharge Date: 06/23/18 Summary Discharge Diagnosis: Status post left total shoulder arthroplasty Hospital Course: End-stage arthritis to the glenohumeral joint with significant osteophyte formation. No sign of any rotator cuff tears. Closure Type: primary Specimen(s): none sent Implants & Drains: Arthrex total shoulder arthroplasty Medium glenoid 8mm stem 44/17 head Applied: drain(s) and implant(s) Estimated Blood Loss (mL): 50 Blood products transfused: none Procedure in detail: On date of service, Patient was met in the holding area. The operative site was signed and witnessed by the OR staff. The surgeries once again discussed with the patient and any remaining questions they had were answered fully. Patient was taken back to the operating theater and placed on the operating table in a supine position. Great care was taken to ensure that all bony prominences were properly padded. Patient was then placed into the beach chair position. The head and neck were properly positioned and secured. A timeout was performed verifying patient's name, procedure, and the operative site. Patient consented for left total shoulder arthroplasty. Patient taken to the operating room underwent left total shoulder arthroplasty. Patient back in her room recovering well as in stable condition. Patient will have some assistance at home with her daughter and sons. She will need assistance due to limited mobility and living alone with OT home health. Status at Discharge Functional status at discharge: independent ambulation Overall status at discharge: patient is progressing back to baseline Time Spent with Patient Less than 30 minutes Exam Vital Signs (past 8 hours): - 06/23/18 05:10 06/23/18 08:27 Temperature 98.2 F 98.3 F Pulse Rate 61 58 L Respiratory Rate 16 16 Blood Pressure 130/72 132/73 Pulse Oximetry 96 98 Oxygen Delivery Method Room Air Oxygen Flow Rate 0 Narrative Exam Narrative: Pleasant 78-year-old female resting comfortably in bedside chair in no apparent distress. Left shoulder dressing is clean, dry and intact. Sensation grossly intact distal left upper extremity. Motor functions intact distal left upper extremity. Left arm is warm and dry with good pulses. Objective Labs Result Diagrams: 06/22/18 05:21 Discharge Plan Discharge Plan Patient Disposition: Home Discharge comment: Discharge home today with home health occupational therapy Discharge Med Rec/Prescriptions Prescriptions: New acetaminophen 325 mg Tablet 975 mg PO TID Qty: 60 RF: 1 oxycodone 5 mg Tablet 5 mg PO Q3HR PRN (Reason: Pain, Moderate (4-6)) Qty: 40 RF: 0 Continue anastrozole 1 mg Tablet 1 mg PO DAILY RF: 0 doxycycline hyclate 50 mg Capsule 50 mg PO PRN PRN (Reason: Rosacea) RF: 0 metronidazole 0.75 % Cream 1 applic TOPICAL DAILY PRN (Reason: Rosacea) RF: 0 sertraline 25 mg Tablet 25 mg PO DAILY RF: 0 zolpidem 5 mg Tablet 5 mg PO BEDTIME PRN (Reason: Sleep) RF: 0 furosemide 20 mg Tablet 20 mg PO DAILY PRN (Reason: Edema) RF: 0 nystatin 100,000 unit/gram Powder 1 applic TOPICAL DAILY PRN (Reason: Rash) RF: 0 irbesartan 300 mg Tablet 300 mg PO DAILY RF: 0 vitamin B complex Capsule 1 cap PO DAILY RF: 0 buprenorphine HCl 2 mg Tablet, Sublingual 2 mg SUBLINGUAL DAILY RF: 0 cyclobenzaprine 5 mg Tablet 5 mg PO BEDTIME RF: 0 etodolac 400 mg Tablet Extended Release 24 Hr 400 mg PO DAILY RF: 0 aspirin, buffered 325 mg Tablet 1 tab PO PRN PRN (Reason: Pain (Scale Score 1-3)) RF: 0 ergocalciferol (vitamin D2) 1,000 units tablet 2,000 units PO DAILY RF: 0 Follow up/Referrals: Ángel Lenz MD [Physician] - 2 Weeks Provider Discharge Instructions Diet: Diet as Tolerated Activity: No weight bearing on left arm, keep arm in sling except to move wrist/elbow several times a day. Keep a dry towel or Maxi pad under the arm pit. Cold/Heat Therapy: Apply ice 20 minutes at a time to operative site at least hourly while awake. Skin/Wound/Dressing Care Report to your healthcare provider any signs of infection, such as:: chills, fever, night sweats, increased pain, unusual drainage and unusual redness Dressing: keep dressing on, may shower with it in place but no soaking. Visit Report/Discharge Packet Instructions: DI for Shoulder Replacement Discharge Data Attending Provider: Ángel Lenz Admit Date/Time: 06/21/18 05:48 Quality VTE Deep Vein Thrombosis/Pulmonary Embolism Present on Admission: No
--- NOTE | 2018-06-23 11:01 | CM.DPC ---
DCP/discharge Patient to discharge home today w/ HH/PT/OT/Bath aid. F2F completed. Called [facility] and notified of d/c. Able to accept patient. Faxed D/C sum, F2F and orders to [facility]. Met with patient: agreeable to discharge with HH and has no needs at this time. Plan: Discharge today with supportive family and [facility] .
--- NOTE | 2018-06-23 11:33 | PC.NURSE ---
discharged to home following full review of plan of care and post op plan with pt and her daughter -
== END 2018-06-23 11:34 | disposition home health service (06) | DRG 483 ==
PROVIDERS: Admitting Provider Orthopaedic Surgery; Visit Provider Orthopaedic Surgery
PROC: 0RRK0JZ Replacement of Left Shoulder Joint with Synthetic Substitute, Open Approach (ICD-10-PCS; CPT 23472; principal; 2018-06-21 07:45)
DX: M19.012 Primary osteoarthritis, left shoulder (principal); Z96.653 Presence of artificial knee joint, bilateral; Z96.643 Presence of artificial hip joint, bilateral; E11.9 Type 2 diabetes mellitus without complications; I10 Essential (primary) hypertension; F32.9 Major depressive disorder, single episode, unspecified; M25.712 Osteophyte, left shoulder
CPT/HCPCS: 36415; 64415; 73030; 85027; 97110; 97116; 97162; 97165; 97530; 97535; C1776; J2250; J2704; J3010; J3370